=== PATIENT | female | born 1955 | race Caucasian/White ===

== ENCOUNTER → 2018-09-17 16:30 | Outpatient (CLI) | payer MEDICARE | END | disposition home or self-care (01) | LOC: D.LABREF 16:30 | PROVIDERS: ATTEND Orthopaedic Surgery | DX: M17.12 Unilateral primary osteoarthritis, left knee (principal); Z11.8 Encounter for screening for other infectious and parasitic diseases ==

== ENCOUNTER 2018-09-19 16:39 | Inpatient (IN) | payer MEDICARE ==
[~2018-09-19] VITALS: Ht 167.6 cm; Wt 90.9 kg
[2018-10-16] MEDS ORDERED: TYLENOL W/CODEI1 TAB PO (12:22)
[2018-10-16] MEDS ORDERED: LODINE400 MG (12:22)
[2018-10-16] MEDS ORDERED: LEVO-T75 MCG PO (12:22)
[2018-10-16] MEDS ORDERED: ZOLOFT100 MG PO (12:23)
[2018-10-16] MEDS ORDERED: LISINOPRIL20 MG PO (12:23)
[2018-10-16] MEDS ORDERED: ZANAFLEX4 MG PO (12:24)
[2018-10-16] MEDS ORDERED: MULTI-DAY VITAM1 TAB PO (12:24)
[2018-10-16] MEDS ORDERED: XELJANZ5 MG PO (12:24)
[2018-10-16] MEDS ORDERED: [UNRECOGNIZED DRUG - OTHER] (12:25)
[2018-10-17 11:11] LABS: HEMATOCRIT 38.3 % (36.0-48.0); HEMOGLOBIN 12.7 g/dL (12-16); LYMPHOCYTES 29.5 % (15-50); MCH 32.6 pg (26.0-34.0); MCHC 33.2 g/dL (31.0-37.0); MCV 98.5 fL (80.0-100.0); MEAN PLATELET VOLUME 9.6 fL (7.4-10.4); NEUTROPHILS 60.6 % (40-80); RBC 3.89 10x6/uL (4.00-5.40); RDW 13.4 % (11.5-14.5); WBC 6.8 10x3/uL (4.8-10.8)
[2018-10-17 11:22] LABS: INR 1.01 (0.85-1.17); PROTIME 12.8 SECONDS (11.6-15.0)
[2018-10-17 11:22] LABS: CALC OSMOLALITY 282 mosm/kg (275-300); CARBON DIOXIDE 30.1 mmol/L (21.0-32.0); CHLORIDE - SERUM 105 mmol/L (98-107); CREATININE - SERUM 0.7 mg/dL (0.6-1.3); GLUCOSE 104 mg/dL (74-106); POTASSIUM - SERUM 3.6 mmol/L (3.5-5.1); SODIUM 141 mmol/L (136-145); UREA NITROGEN 18 mg/dL (7-18); eGFR NON AFRICAN AMERICAN 90 mL/min (90-120)
[2018-10-17 11:23] LABS: APTT 28.8 SECONDS (22.8-39.4)
[2018-10-17 11:41] LABS: PLATELET COUNT 293 10x3/uL (130-400)
[2018-10-17 12:09] LABS: APPEARANCE HAZY (CLEAR); COLOR YELLOW (YELLOW)
[2018-10-17 12:10] LABS: BACTERIA MANY /hpf (NONE SEEN); BILIRUBIN NEGATIVE (NEGATIVE); EPITHELIAL CELLS OCC /hpf (0-5); GLUCOSE NEGATIVE (NEGATIVE); KETONE NEGATIVE (NEGATIVE); MUCUS <1+ /lpf (NONE SEEN); NITRITE POSITIVE (NEGATIVE); PROTEIN NEGATIVE (NEGATIVE); RED CELLS - URINE RARE /hpf (0-5); UROBILINOGEN NORMAL (NORMAL); WHITE CELLS - URINE 0-5 /hpf (0-5)
[2018-10-23] MEDS ORDERED: CIPRO500 MG PO (07:41)
[2018-10-23 07:42] VITALS: BP 134/87; BMI 33.1
[2018-10-23 09:02] LABS: APPEARANCE HAZY (CLEAR); BACTERIA FEW /hpf (NONE SEEN); BILIRUBIN NEGATIVE (NEGATIVE); COLOR YELLOW (YELLOW); EPITHELIAL CELLS OCC /hpf (0-5); GLUCOSE NEGATIVE (NEGATIVE); KETONE NEGATIVE (NEGATIVE); MUCUS <1+ /lpf (NONE SEEN); NITRITE NEGATIVE (NEGATIVE); PROTEIN NEGATIVE (NEGATIVE); RED CELLS - URINE 0-5 /hpf (0-5); UROBILINOGEN NORMAL (NORMAL); WHITE CELLS - URINE RARE /hpf (0-5)
--- NOTE | 2018-10-23 10:50 | NUR ---
FELIPE BLADE SETTINGS 6 AND 8 ELECTRODE PAD RIGHT THIGH LOT# [id number] DATE: 11/17/19
[2018-10-23 12:20] VITALS: BP 96/61
--- NOTE | 2018-10-23 12:20 | NUR ---
ARRIVED TO ROOM 2235 VIA STRETCHER WITH EYES CLOSED EASILY TO AROUSED WHEN NAME IS CALLED. RESP EVEN AND UNLABORED WITH NO DISTRESS NOTEDE. HAS O2 IN USE VIA N/C @ 2L/M. DRESSING CLEAN DRY AND INTACT TO LEFTT KNEE WITH ICE PACK IN USE. VS STARTED PER PROTOCOL. FAMILY AND C/L IN REACH AT BEDSIDE.
--- NOTE | 2018-10-23 12:43 | OP ---
PATIENT NAME: ASHLEY HEARD MEDICAL RECORD: [id number] :59 LOCATION: D.2235 ADMISSION DATE:10/23/18 SURGEON: BLAZE HENRY DO DATE OF OPERATION: 10/23/2018 PROCEDURE PERFORMED: Left total knee arthroplasty. PREOPERATIVE DIAGNOSIS: Left knee osteoarthritis. POSTOPERATIVE DIAGNOSIS: Left knee osteoarthritis. INDICATIONS: Ms. Heard is a 63-year-old female who has tried all manner of nonoperative treatment for her left knee osteoarthritis including injections and home physical therapy and she is tired of dealing with the pain and it is affecting her activities of living and wanted something done surgically. I informed of the risks including infection, bleeding, damage to nerves and vessels, need for further surgery. She was okay with those as well as blood clots and even , fracture and need for further surgery, and signed the consent. SURGEON: Blaze Henry DO AUTOMOBILES SALESPERSON: Torin Payan, advanced nurse practitioner, who assisted with retraction and closure. DESCRIPTION OF PROCEDURE: The patient was given a block by anesthesia in the preoperative area, taken to the operative suite, laid in supine position, given general anesthetic and LMA was placed. She was given 2 grams of Ancef and 80 mg gentamicin preoperatively. The left lower extremity was then prepped and draped in sterile fashion. A timeout was performed and everyone was in agreement as to correct side, site, patient, and procedure. Incision then began using 10-blade scalpel down to the capsule. She was given a gram of TXA. At that time, the capsule was cleared off and then a fresh 10-blade was used to medial parapatellar approach. The patella was then milled down for the patellar prosthesis and the knee was flexed up. The intramedullary canal was entered through the distal femur with the drill and the distal cutting guide on the femur was used to cut the femur. Once this femur was cut, the tibia was exposed and the tibia was cut. The knee was then brought into extension and the menisci were removed. Any bleeding was coagulated with Aquamantys at that time. I then had to recut his tibia in order to fit the extension block, it was recut, the extension block did not fit and the knee was flexed up. The femur was sized to be 65. The 4-in-1 cutting block was then put into place and drilled and the femur was cut. The bone was removed and then a tibial tray was used and floated in. Once the tibial tray was floated in, the rotation was marked and the patella was drilled as well as the femur lug holes. The tibia was then exposed and sized to be a 71. The 71 was drilled and punched and the extra holes were put in the tibia for the cement fixation. The cement was then mixed and placed in the tibia and on the implant, impacted into place. Excess cement was removed. The femur was then impacted on and 10 poly was put in between and brought to extension. Excess cement was removed and then the patella was cemented. The squeezer was used to hold the patella in place while the cement hardened. Excess cement was removed from the tibia and the patella at that time. The knee was thoroughly irrigated while cement dried and sized the poly, the 12 fit the best and extension and flexion and a 12 poly anterior stabilized E-bearing was put in and locked into place with locking mechanism. Surgicel OPERATIVE REPORT [id number] LINWOOD,ASHLEY NOHEMI powder and then vancomycin and tobramycin powder was placed in the knee. A lateral release was done on the lateral retinaculum so the patella would track correctly. This was somewhat tilted lateral on the x-ray after the implants were in. The capsule was then closed with #2 Ethibond in a cvntsw-bd-[id number] fashion and skin was closed with 2-0 Vicryl in inverted interrupted fashion. ZipLine was placed on it. Adaptic, 4 x 4s, ABD, Webril, and 6-inch Trever wrap were then placed on the knee and MARYCARMEN hose stocking placed on the knee. She was awakened and taken to recovery in stable condition. Blood loss was approximately 200 mL. A second gram of TXA was then given. COMPLICATIONS: None. TRANSINT:[id number] Voice Confirmation ID: [id number] DOCUMENT ID: [id number] BLAZE HENRY DO at 1243 CC: [id number] DICTATION DATE: 10/23/18 1109 DAIRY ASSOCIATE: 10/23/18 1232 ADM IN [facility] [address] [place] [address]
[2018-10-23 16:44] VITALS: BP 101/61
--- NOTE | 2018-10-23 16:54 | NUR ---
I have reviewed this patient and I concur with the Shift Assessment completed by the Licensed Practical Nurse today this shift.
[2018-10-23 20:00] VITALS: BP 96/49
[2018-10-24] VITALS (7 sets, daily range): BP systolic 104–142; BP diastolic 49–80; Ht 167.6 cm; Wt 90.9 kg
--- NOTE | 2018-10-24 05:21 | NUR ---
PT RESTING IN BED. ALERT AND ORIENTED. NO SIGNS OF DISTRESS. BREATHING EVEN AND UNLABORED. IV SITE RT AC DRESSING CLEAN DRY AND INTACT. NO SIGNS OF INFECTION. BOWEL SOUNDS ACTIVE. LT KNEE DRESSING CLEAN DRY AND INTACT. WILL CONTINUE PLAN OF CARE. CALL LIGHT IN REACH. BED LOWERED AND LOCKED. BED RAILS UP X2.
[2018-10-24 05:41] LABS: HEMATOCRIT 32.9 % (36.0-48.0); MCH 32.7 pg (26.0-34.0); MCHC 33.4 g/dL (31.0-37.0); MCV 97.9 fL (80.0-100.0); MEAN PLATELET VOLUME 9.9 fL (7.4-10.4); RBC 3.36 10x6/uL (4.00-5.40); WBC 9.7 10x3/uL (4.8-10.8)
--- NOTE | 2018-10-24 06:20 | NUR ---
PT IS WITHOUT DISTRESS.CALL LIGHT IN REACH
--- NOTE | 2018-10-24 07:40 | NUR ---
PT RESTING IN BED WITH EYES OPEN. STEFFANY BEARD AT THE BEDSIDE PLACING PT BACK ON THE CPM. ALERT AND ORIENTED. IV LOCATED TO RIGHT AC RUNNING 1/2NS @ ML. CURRENTLY RCVING 3L VIA NC. REQUESTING A SPRITE BUT DENIES ANY FURTHER NEEDS. BED LOW, CALL LIGHT IN REACH, RAILS UP X2. WILL CONTINUE TO MONITOR.
--- NOTE | 2018-10-25 02:20 | NUR ---
PT RESTING IN BED. EYES CLOSED. NO SIGNS OF DISTRESS. BREATHINGE EVEN AND UNLABORED. IVSITE RT FA DRESSING CLEAN DRY AND INTACT. NO SIGNS OF INFECTION. BOWEL SOUNDS ACTIVE. 3LO2 NASAL CANNULA. LT KLNEE DRESSING CLEAN DRY AND INTACT. WILL CONTINUE PLAN OF CARE. CALL LIGHT IN REACH. BED LOWERED AND LOCKED
--- NOTE | 2018-10-25 03:28 | NUR ---
I have reviewed this patient and I concur with the Shift Assessment completed by the Licensed Practical Nurse today this shift.
[2018-10-25 04:00] VITALS: BP 153/84
[2018-10-25 06:48] LABS: BASOPHILS 0.2 % (0-2); EOSINOPHILS 1.3 % (0-7); HEMATOCRIT 34.2 % (36.0-48.0); HEMOGLOBIN 11.2 g/dL (12-16); IMMATURE GRANULOCYTES 0.3 % (0-5); LYMPHOCYTES 9.9 % (15-50); MCH 31.8 pg (26.0-34.0); MCHC 32.7 g/dL (31.0-37.0); MCV 97.2 fL (80.0-100.0); MONOCYTES 10.9 % (2-11); NEUTROPHILS 77.4 % (40-80); PLATELET COUNT 267 10x3/uL (130-400); RBC 3.52 10x6/uL (4.00-5.40); RDW 13.9 % (11.5-14.5); WBC 9.1 10x3/uL (4.8-10.8)
[2018-10-25 06:53] LABS: CALC OSMOLALITY 280 mosm/kg (275-300); CALCIUM 8.4 mg/dL (8.5-10.1); CARBON DIOXIDE 25.1 mmol/L (21.0-32.0); CHLORIDE - SERUM 106 mmol/L (98-107); CREATININE - SERUM 0.8 mg/dL (0.6-1.3); GLUCOSE 129 mg/dL (74-106); POTASSIUM - SERUM 3.5 mmol/L (3.5-5.1); SODIUM 140 mmol/L (136-145); UREA NITROGEN 12 mg/dL (7-18); eGFR NON AFRICAN AMERICAN 77 mL/min (90-120)
[2018-10-25 09:15] VITALS: BP 137/84
[2018-10-25 13:10] VITALS: BP 101/70
--- NOTE | 2018-10-25 14:22 | MORECARE ---
CASE MANAGEMENT DISCHARGE SUMMARY PATIENT: ASHLEY PALUMBO UNIT: [id number] ADM DATE: 10/23/18 AGE: 63 : 59 SEX: F ROOM/BED: D.2235 AUTHOR: PENELOPE VASQUEZ PHYSICIAN: REFERRING PHYSICIAN: SHALOM HENYR DO DATE OF SERVICE: 10/25/18 Discharge Plan Patient Name: ASHLEY PALUMBO Facility: [facility]:[place] : 1955 Planned Disposition: Anticipated Discharge Date: Discharge Date: Expected LOS: Initial Reviewer: [email or web address] Initial Review Date: 10/23/2018 Generated: 10/25/18 3:22 pm Comments DCP- Discharge Planning Updated by [id number]: Maryandrew Jimenes on 10/25/18 1:[address] Patient Name: ASHLEY PALUMBO Admission Status: Elective Accout number: [id number] Admission Date: 10-23-2018 : 1955 Admission Diagnosis:UNILATERAL PRIMARY OSTEOARTHRITIS, LEFT KNEE Attending: SHALOM HENRY Current LOS: 2 Anticipated DC Date: Planned Disposition: Primary Insurance: MEDICARE A & B Discharge Planning Comments: CM MET WITH PATIENT AND HER DAUGHTER ABOUT DC PLANNING. STATES FEELS SHE NEEDS SOME INPATIENT REHAB WHEN DISCHARGED. I WILL SEND A REFERRAL TO REHAB. CM TO FOLLOW AND ASSIST. Director Workforce Management: Mary Jimenes DCPIA - Discharge Planning Initial Assessment Updated by [email or web address]: Mary Jimenes on 10/25/18 2:14 pm * Is the patient Alert and Oriented? Yes * PCP ANDREW * Pharmacy [facility] * Preadmission Environment Home Alone * ADLs Independent * List name and contact numbers for known caregivers / representatives who currently or will assist patient after discharge: DIONNA SCHULTE, DAUGHTER, * Additional services required to return to the preadmission environment? Yes * Can the patient safely return to the preadmission environment? No * Has this patient been hospitalized within the prior 30 days at any hospital? No Patient Name: ASHLEY PALUMBO Page [id number] at 1422 All edits/amendments must be made on the electronic document DICTATION DATE: 10/25/181421 CRIMINAL JUSTICE PROGRAM DIRECTOR: VENTURA 10/25/181421 RPT#: [id number] DC DATE: STATUS: ADM IN [facility] [address] [place] [address] END OF REPORT
--- NOTE | 2018-10-25 17:40 | NUR ---
I have reviewed this patient and I concur with the Shift Assessment completed by the Licensed Practical Nurse today this shift.
[2018-10-25 18:10] VITALS: BP 112/69
[2018-10-25 19:55] VITALS: BP 103/59
[2018-10-26] VITALS: BP 116/67
--- NOTE | 2018-10-26 01:22 | NUR ---
PATIENT RESTING IN BED WITH IV TO RIGHT FR. ALERT AND ORENTED ABLE TO VOICE NEEDS AND WANTS TO STAFF. DRESSING TO LEFT KNEE CDI MARYCARMEN HOUSE IN PLACE. WATER AND CALL LIGHT IN REACH , BED LOW.CPM PER ORDERS. BSC IN PLACE AT BEDSIDE.
[2018-10-26 04:00] VITALS: BP 137/77
--- NOTE | 2018-10-26 07:15 | NUR ---
REC'D IN BED AWAKE and alert. Resp even and unlabored with no distress noted. Can express needs and wants. With none noted or voiced at this time. Assessment completed. C/l in reach at bedside.
[2018-10-26 07:18] LABS: ANION GAP 17.3 mmol/L (8-16); CALCIUM 8.6 mg/dL (8.5-10.1); CARBON DIOXIDE 19.7 mmol/L (21.0-32.0); CREATININE - SERUM 0.9 mg/dL (0.6-1.3)
[2018-10-26 07:49] LABS: BASOPHILS 0.2 % (0-2); EOSINOPHILS 1.6 % (0-7); HEMATOCRIT 36.1 % (36.0-48.0); HEMOGLOBIN 11.6 g/dL (12-16); IMMATURE GRANULOCYTES 0.3 % (0-5); LYMPHOCYTES 11.1 % (15-50); MCH 31.5 pg (26.0-34.0); MCHC 32.1 g/dL (31.0-37.0); MCV 98.1 fL (80.0-100.0); MEAN PLATELET VOLUME 10.1 fL (7.4-10.4); MONOCYTES 8.3 % (2-11); NEUTROPHILS 78.5 % (40-80); PLATELET COUNT 242 10x3/uL (130-400); RBC 3.68 10x6/uL (4.00-5.40); RDW 13.5 % (11.5-14.5); WBC 10.3 10x3/uL (4.8-10.8)
[2018-10-26 08:30] VITALS: BP 145/81
--- NOTE | 2018-10-26 09:10 | NUR ---
WAS MEDICATED WITH DILADID PER ORDER FOR C/O LEFT KNEE PAIN. C/L IN REACH AT BEDSIDE.
[2018-10-26] MEDS ORDERED: DILAUDID4 MG PO (11:46)
[2018-10-26] MEDS ORDERED: ELIQUIS2.5 MG PO (11:46)
[2018-10-26] MEDS ORDERED: VISTARIL50 MG PO (11:46)
--- NOTE | 2018-10-26 12:26 | NUR ---
DRESSING CHANGED AT THIS TIME TO LEFT KNEE WITH MEPILEX BORDER AG APPLIED AT THIS TIME PER MD ORDERS. DAUGHTER WAS AT BEDSIDE. C/L IN REACH AT BEDSIDE.
[2018-10-26 12:47] VITALS: BP 124/78
--- NOTE | 2018-10-26 13:59 | NUR ---
DC JOSE AT THIS TIME VOICES UNDERSTANDING OF DC ORDERS. DAUGHTER AT BEDSIDE AND ALSO VOICES UNDERSTANDING. STABLE CONDITION UPON DEPARTURE. C/L IN REACH AT BEDSIDE.
--- NOTE | 2018-10-26 15:43 | MORECARE ---
CASE MANAGEMENT DISCHARGE SUMMARY PATIENT: ASHLEY PALUMBO UNIT: [id number] ADM DATE: 10/23/18 AGE: 63 : 59 SEX: F ROOM/BED: D.2235 AUTHOR: PENELOPE VASQUEZ PHYSICIAN: REFERRING PHYSICIAN: SHALOM HENRY DO DATE OF SERVICE: 10/26/18 Discharge Plan Patient Name: ASHLEY PALUMBO Facility: [facility]:[place] : 1955 Planned Disposition: Anticipated Discharge Date: Discharge Date: 10/26/2018 Expected LOS: Initial Reviewer: [email or web address] Initial Review Date: 10/23/2018 Generated: 10/26/18 4:43 pm Comments DCP- Discharge Planning Updated by [email or web address]: Mary Jimenes on 10/25/18 1:[address] Patient Name: ASHLEY PALUMBO Admission Status: Elective Accout number: [id number] Admission Date: 10-23-2018 : 1955 Admission Diagnosis:UNILATERAL PRIMARY OSTEOARTHRITIS, LEFT KNEE Attending: SHALOM HENYR Current LOS: 2 Anticipated DC Date: Planned Disposition: Primary Insurance: MEDICARE A & B Discharge Planning Comments: CM MET WITH PATIENT AND HER DAUGHTER ABOUT DC PLANNING. STATES FEELS SHE NEEDS SOME INPATIENT REHAB WHEN DISCHARGED. I WILL SEND A REFERRAL TO REHAB. CM TO FOLLOW AND ASSIST. Automotive Fuel Systems Converter: Mary Jimenes DCPIA - Discharge Planning Initial Assessment Updated by [id number]: Mary Jimenes on 10/25/18 2:14 pm * Is the patient Alert and Oriented? Yes * PCP ANDREW * Pharmacy [facility] * Preadmission Environment Home Alone * ADLs Independent * List name and contact numbers for known caregivers / representatives who currently or will assist patient after discharge: DIONNA SCHULTE, DAUGHTER, * Additional services required to return to the preadmission environment? Yes * Can the patient safely return to the preadmission environment? No * Has this patient been hospitalized within the prior 30 days at any hospital? No Coverage Notice Reviewer: [id number] - Mary Jimenes Notice Issued Date-Time: 10/26/2018 11:59 Notice Type: IM Discharge Notice Notice Delivered To: Patient Relationship to Patient: Self Digital Technician Name: Delivery Method: HAND - Hand Delivered Kenna Days: Prior Verbal Notification: Recipient Understood Notice: Yes Recipient Signature: Yes Med Rec Note Co-signed by Attending: Coverage Notice Comment: Last DP export: 10/25/18 1:22 p Patient Name: ASHLEY PALUMBO Page [phone] at 1543 All edits/amendments must be made on the electronic document DICTATION DATE: 10/26/18 1543 HUMANITIES PROFESSOR: VENTURA 10/26/18 1543 RPT#: [id number] DC DATE:10/26/18 STATUS: DIS IN [facility] [address] [place] [address] END OF REPORT
== END 2018-10-26 14:01 | disposition home or self-care (01) | DRG 470 ==
LOC: D.SDCHOLD 10-17 10:00 → D.MS 10-23 06:35 → D.SDCHOLD 10-23 08:15 → D.MS 10-23 12:10
PROVIDERS: Internal Medicine Nephrology; ADMIT Orthopaedic Surgery; ATTEND Orthopaedic Surgery
PROC: 0SRD0J9 Replacement of Left Knee Joint with Synthetic Substitute, Cemented, Open Approach (ICD-10-PCS; principal; 2018-10-23 08:15)
DX: M17.12 Unilateral primary osteoarthritis, left knee (principal); D62 Acute posthemorrhagic anemia; I10 Essential (primary) hypertension; E03.9 Hypothyroidism, unspecified; K21.9 Gastro-esophageal reflux disease without esophagitis

== ENCOUNTER → 2018-11-08 14:01 | Outpatient (CLI) | payer MEDICARE ==
[2018-10-24 15:11] VITALS: BMI 32.3
[~2018-11-08 14:01] MED LIST: CIPRO500 MG PO; DILAUDID4 MG PO; ELIQUIS2.5 MG PO; LEVO-T75 MCG PO; LISINOPRIL20 MG PO; LODINE400 MG; MULTI-DAY VITAM1 TAB PO; TYLENOL W/CODEI1 TAB PO; VISTARIL50 MG PO; XELJANZ5 MG PO; ZANAFLEX4 MG PO; ZOLOFT100 MG PO; [UNRECOGNIZED DRUG - OTHER]
[2018-11-08 14:36] LABS: APPEARANCE CLOUDY (CLEAR); BACTERIA MANY /hpf (NONE SEEN); BILIRUBIN NEGATIVE (NEGATIVE); COLOR DK YELLOW (YELLOW); EPITHELIAL CELLS 0-5 /hpf (0-5); GLUCOSE NEGATIVE (NEGATIVE); KETONE NEGATIVE (NEGATIVE); NITRITE POSITIVE (NEGATIVE); PROTEIN NEGATIVE (NEGATIVE); RED CELLS - URINE 0-5 /hpf (0-5); UROBILINOGEN NORMAL (NORMAL); WHITE CELLS - URINE 0-5 /hpf (0-5)
== END | disposition home or self-care (01) ==
LOC: D.LAB 14:01
PROVIDERS: ATTEND Orthopaedic Surgery
DX: N39.0 Urinary tract infection, site not specified (principal)

== ENCOUNTER → 2019-05-06 15:34 | Outpatient (CLI) | payer MEDICARE ==
[2018-10-24 15:11] VITALS: BMI 32.3
[2019-05-06 20:34] LABS: BASOPHILS 0.9 % (0-2); EOSINOPHILS 2.1 % (0-7); HEMATOCRIT 38.2 % (36.0-48.0); HEMOGLOBIN 11.9 g/dL (12-16); LYMPHOCYTES 39.9 % (15-50); MCH 29.8 pg (26.0-34.0); MCHC 31.2 g/dL (31.0-37.0); MCV 95.7 fL (80.0-100.0); MONOCYTES 7.8 % (2-11); NEUTROPHILS 49.3 % (40-80); RBC 3.99 10x6/uL (4.00-5.40); RDW 14.7 % (11.5-14.5); WBC 4.3 10x3/uL (4.8-10.8)
[2019-05-06 20:49] LABS: PLATELET COUNT 461 10x3/uL (130-400)
[2019-05-06 21:39] LABS: ERYTHROCYTE SEDIMENTATION RATE 14 mm/hr (0-30)
== END | disposition home or self-care (01) ==
LOC: D.LABREF 15:34
PROVIDERS: ATTEND Orthopaedic Surgery
DX: M25.562 Pain in left knee (principal)

== ENCOUNTER → 2019-09-19 18:18 | Outpatient (CLI) | payer MEDICARE ==
[2018-10-24 15:11] VITALS: BMI 32.3
== END | disposition home or self-care (01) ==
LOC: D.LABREF 18:18
PROVIDERS: ATTEND Orthopaedic Surgery
DX: M17.12 Unilateral primary osteoarthritis, left knee (principal)

== ENCOUNTER 2019-09-26 08:00 | Outpatient (CLI) | payer MEDICARE ==
[2019-09-26] MEDS ORDERED: XELJANZ5 MG PO (10:51)
[2019-09-26] MEDS ORDERED: TYLENOL W/CODEI1 TAB PO (10:52)
[2019-09-26] MEDS ORDERED: VITAMIN D5000 UNI1 PO (10:52)
[2019-09-26 11:52] LABS: HEMATOCRIT 36.5 % (36.0-48.0); HEMOGLOBIN 11.4 g/dL (12-16); LYMPHOCYTES 21.1 % (15-50); MCH 29.7 pg (26.0-34.0); MCHC 31.2 g/dL (31.0-37.0); MCV 95.1 fL (80.0-100.0); MEAN PLATELET VOLUME 9.6 fL (7.4-10.4); NEUTROPHILS 68.1 % (40-80); RBC 3.84 10x6/uL (4.00-5.40); RDW 13.9 % (11.5-14.5); WBC 4.9 10x3/uL (4.8-10.8)
--- NOTE | 2019-09-26 11:55 | NUR ---
T- 97.9, BP RA- 135/74, POX- 96%, HR- 66, RR- 16
[2019-09-26 12:04] LABS: CALC OSMOLALITY 272 mosm/kg (275-300); CALCIUM 8.6 mg/dL (8.5-10.1); CARBON DIOXIDE 28.7 mmol/L (21.0-32.0); CHLORIDE - SERUM 103 mmol/L (98-107); CREATININE - SERUM 0.8 mg/dL (0.6-1.3); GLUCOSE 92 mg/dL (74-106); PLATELET COUNT 322 10x3/uL (130-400); POTASSIUM - SERUM 3.7 mmol/L (3.5-5.1); SODIUM 137 mmol/L (136-145); UREA NITROGEN 11 mg/dL (7-18); eGFR NON AFRICAN AMERICAN 77 mL/min (90-120)
[2019-09-26 12:12] LABS: APTT 29.8 SECONDS (22.8-39.4); INR 0.97 (0.85-1.17); PROTIME 12.9 SECONDS (11.6-15.0)
[2019-09-26 13:03] LABS: BILIRUBIN NEGATIVE (NEGATIVE); KETONE NEGATIVE (NEGATIVE); NITRITE NEGATIVE (NEGATIVE)
[2019-09-26 13:04] LABS: BACTERIA FEW /hpf (NEGATIVE); EPITHELIAL CELLS 0-5 /hpf (0-5); WHITE CELLS - URINE OCC /hpf (NEGATIVE)
[2019-10-25 12:16] VITALS: Wt 92.5 kg
== END 2019-09-26 08:01 | disposition home or self-care (01) ==
LOC: D.OPS 08:00 → D.SDCHOLD 09-27 11:30 → EDSTATUS 09-27 12:00 → D.SDCHOLD 09-27 12:00
PROVIDERS: ATTEND Orthopaedic Surgery
DX: Z96.652 Presence of left artificial knee joint (principal)

== ENCOUNTER 2019-10-10 12:30 | Inpatient (IN) | payer MEDICARE ==
[~2019-10-10] VITALS: Ht 165.1 cm; Wt 94.8 kg
[~2019-10-10 12:30] MED LIST changes: +VITAMIN D5000 UNI1 PO
[2019-10-17 10:26] LABS: EOSINOPHILS 4.1 % (0-7); HEMATOCRIT 36.3 % (36.0-48.0); HEMOGLOBIN 11.1 g/dL (12-16); IMMATURE GRANULOCYTES 0.2 % (0-5); LYMPHOCYTES 19.2 % (15-50); MCH 29.3 pg (26.0-34.0); MCHC 30.6 g/dL (31.0-37.0); MCV 95.8 fL (80.0-100.0); MEAN PLATELET VOLUME 9.7 fL (7.4-10.4); MONOCYTES 7.9 % (2-11); NEUTROPHILS 67.6 % (40-80); RBC 3.79 10x6/uL (4.00-5.40); RDW 14.2 % (11.5-14.5); WBC 5.8 10x3/uL (4.8-10.8)
[2019-10-17 10:31] LABS: PLATELET COUNT 413 10x3/uL (130-400)
[2019-10-17 10:36] LABS: APTT 30.9 SECONDS (22.8-39.4); INR 0.95 (0.85-1.17); PROTIME 12.7 SECONDS (11.6-15.0)
[2019-10-17 10:38] LABS: CALC OSMOLALITY 278 mosm/kg (275-300); CALCIUM 8.5 mg/dL (8.5-10.1); CARBON DIOXIDE 28.9 mmol/L (21.0-32.0); CHLORIDE - SERUM 105 mmol/L (98-107); CREATININE - SERUM 0.8 mg/dL (0.6-1.3); GLUCOSE 93 mg/dL (74-106); POTASSIUM - SERUM 3.8 mmol/L (3.5-5.1); SODIUM 140 mmol/L (136-145); UREA NITROGEN 13 mg/dL (7-18); eGFR NON AFRICAN AMERICAN 77 mL/min (90-120)
[2019-10-17 10:40] LABS: BILIRUBIN NEGATIVE (NEGATIVE); GLUCOSE NEGATIVE (NEGATIVE); KETONE NEGATIVE (NEGATIVE); NITRITE NEGATIVE (NEGATIVE); UROBILINOGEN NORMAL (NORMAL)
[2019-10-17 10:41] LABS: BACTERIA FEW /hpf (NEGATIVE); EPITHELIAL CELLS 0-5 /hpf (0-5); WHITE CELLS - URINE 0-5 /hpf (NEGATIVE)
[2019-10-21] VITALS (11 sets, daily range): BP systolic 115–136; BP diastolic 60–82; BMI 35.0
[2019-10-21] MEDS ORDERED: MERIBIN5 MG PO (07:39)
--- NOTE | 2019-10-21 12:00 | NUR ---
RECEIVED PT TO FLOOR FROM RECOVERY, A&O, FAMILY AT BEDSIDE, CALL LIGHT IN REACH, ORIENTED TO ROOM, PAIN MEDICATION GIVEN, DIET ORDERED, BED LOWEST POSITION, SCDS ON, VITAL MACHINE ON FOR MONITORING
[2019-10-22] VITALS: BP 129/71
[2019-10-22 04:00] VITALS: BP 143/78
[2019-10-22 04:52] LABS: HEMATOCRIT 32.5 % (36.0-48.0); HEMOGLOBIN 9.9 g/dL (12-16); MCHC 30.5 g/dL (31.0-37.0); MCV 95.3 fL (80.0-100.0); MEAN PLATELET VOLUME 10.6 fL (7.4-10.4); RBC 3.41 10x6/uL (4.00-5.40); RDW 14.5 % (11.5-14.5); WBC 8.6 10x3/uL (4.8-10.8)
--- NOTE | 2019-10-22 07:16 | NUR ---
GAVE TORADOL IVP AND PERCOCET PO PER PT REQUEST FOR BREAKTHROUGH PAIN AT LEVEL 8/10. WILL MONITOR FOR EFFECTIVENESS.
--- NOTE | 2019-10-22 07:45 | NUR ---
ALERT AND ORIENTED. LUNGS CLEAR BILATERALLY. HEART SOUNDS S1 AND S2 HEARD IN ALL LYNN. BOWEL SOUNDS ACTIVE X 4 IV TO RIGHT AC PATENT WITHOUT REDNESS. DENIES NEEDS. BED LOW. CALL ZENDEJAS AND PERSONAL ITEMS IN REACH. WILL CONTINUE TO MONITOR.
[2019-10-22 09:17] VITALS: BP 110/65
--- NOTE | 2019-10-22 11:20 | NUR ---
REPORT CALLED TO CAROLINE ON M3.
--- NOTE | 2019-10-22 11:37 | NUR ---
PT RECIEVED FROM MED SURG, CARE ASSUMED. NO S/S OF DISTRESS AT THIS TIME. PT TRANSFERRED FROM WHEELCHAIR TO BED WITH STANDBY ASSIST. NO NEEDS AT THIS TIME.
[2019-10-22 15:16] VITALS: BP 116/65
[2019-10-22 20:00] VITALS: BP 117/51
--- NOTE | 2019-10-22 20:00 | NUR ---
ALERT SITTING UP IN BED, HAS INTERMODAL TRUCK DRIVER FOR PAIN CONTROL, DENIES NEEDS AT THIS TIME, SEE SHIFT ASSESSMENT, CALL LIGHT IN REACH
[2019-10-23 04:00] VITALS: BP 143/72
[2019-10-23 06:52] LABS: HEMATOCRIT 30.3 % (36.0-48.0); HEMOGLOBIN 9.3 g/dL (12-16); MCH 29.4 pg (26.0-34.0); MCHC 30.7 g/dL (31.0-37.0); MCV 95.9 fL (80.0-100.0); MEAN PLATELET VOLUME 9.9 fL (7.4-10.4); RBC 3.16 10x6/uL (4.00-5.40); RDW 14.5 % (11.5-14.5); WBC 7.1 10x3/uL (4.8-10.8)
[2019-10-23 08:00] VITALS: BP 128/70
--- NOTE | 2019-10-23 08:10 | NUR ---
PT LAYING IN BED, EYES CLOSED, EVEN RESPIRATIONS. PIV IN R FOREARM, PATENT, NO REDNESS OR SWELLING. SCD ON RLE. DELLA WRAP ON LLE, C/D/I. BED LOW, RAILS X2. CL IN REACH. WILL CONTINUE TO MONITOR.
--- NOTE | 2019-10-23 09:00 | NUR ---
D/C BEE PRODUCER PUMP AND S/L PIV. PT TOLERATED WELL. WILL CONTINUE TO MONITOR.
--- NOTE | 2019-10-23 09:45 | NUR ---
PT C/O PAIN 08/20, PROVIDED PAIN MED PER ORDER. PT ABLE TO AMBULATE WITH PT, TOLERATED WELL. PT DENIES FURTHER NEEDS. BED LOW, RAILS X2. WILL CONTINUE TO MONITOR.
[2019-10-23 09:53] VITALS: Ht 165.1 cm; Wt 94.8 kg
[2019-10-23 11:22] VITALS: BP 107/63
--- NOTE | 2019-10-23 14:46 | MORECARE ---
CASE MANAGEMENT DISCHARGE SUMMARY PATIENT: ASHLEY PALUMBO UNIT: [id number] ADM DATE: 10/21/19 AGE: 64 : 59 SEX: F ROOM/BED: D.1206 AUTHOR: PENELOPE VASQUEZ PHYSICIAN: REFERRING PHYSICIAN: MANJIT NAYAK MD DATE OF SERVICE: 10/23/19 Discharge Plan Patient Name: ASHLEY PALUMBO Facility: [facility]:[place] : 1955 Planned Disposition: Inpatient Rehab Anticipated Discharge Date: Discharge Date: Expected LOS: Initial Reviewer: [email or web address] Initial Review Date: 10/21/2019 Generated: 10/23/19 3:45 pm DCPIA - Discharge Planning Initial Assessment Updated by [email or web address]: Kristy Copeland on 10/23/19 2:42 pm * Is the patient Alert and Oriented? Yes * How many steps to enter\exit or inside your home? * PCP MORALES * Pharmacy [facility] [address] * Preadmission Environment Home Alone * ADLs Partial Dependent * Partial ADLs (Assistance needed) Transfers * Equipment Bedside Commode Cane Rolling Walker Shower Chair * Other Equipment TRANSFER SHOWER CHAIR * List name and contact numbers for known caregivers / representatives who currently or will assist patient after discharge: DIONNA SCHULTE ([facility]) [phone] * Verbal permission to speak to the caregivers and representatives has been obtained from the patient. Yes * Community resources currently utilized Advantage Program * Please name any agencies selected above. [facility] 15 HOURS PER WEEK * Additional services required to return to the preadmission environment? Yes * Can the patient safely return to the preadmission environment? No * Has this patient been hospitalized within the prior 30 days at any hospital? No Patient Name: ASHLEY PALUMBO Page [phone] at 1446 All edits/amendments must be made on the electronic document DICTATION DATE: 10/23/19 1446 INDUSTRIAL METHODS CONSULTANT: VENTURA 10/23/19 1446 RPT#: [id number] DC DATE: STATUS: ADM IN [facility] [address] [place] [address] END OF REPORT
--- NOTE | 2019-10-23 14:55 | MORECARE ---
CASE MANAGEMENT DISCHARGE SUMMARY PATIENT: ASHLEY PALUMBO UNIT: [id number] ADM DATE: 10/21/19 AGE: 64 : 59 SEX: F ROOM/BED: D.1206 AUTHOR: PENELOPE VASQUEZ PHYSICIAN: REFERRING PHYSICIAN: MANJIT NAYAK MD DATE OF SERVICE: 10/23/19 Discharge Plan Patient Name: ASHLEY PALUMBO Facility: [facility]:[place] : 1955 Planned Disposition: Inpatient Rehab Anticipated Discharge Date: Discharge Date: Expected LOS: Initial Reviewer: [email or web address] Initial Review Date: 10/21/2019 Generated: 10/23/19 3:54 pm Comments DCP- Discharge Planning Updated by [email or web address]: Kristy Copeland on 10/23/19 1:[address] patient's dme is from [facility], THE CPM WILL BE DELIVERED TO THE HOME DCP- Discharge Planning Updated by [email or web address]: Kristy Copeland on 10/23/19 1:[address] Patient Name: ASHLEY PALUMBO Admission Status: Urgent Accout number: [id number] Admission Date: 10-21-2019 : 1955 Admission Diagnosis: Attending: MANJIT NAYAK Current LOS: 2 Anticipated DC Date: Planned Disposition: Inpatient Rehab Primary Insurance: MEDICARE A & B Discharge Planning Comments: CM met with patient to complete initial dc planning assessment. CM educated patient on the CM role and verbal consent given by patient to complete assessment. Patient lives at home by herself where she states she is independent with her care, but she does have [facility] who comes and helps her 15 hrs a week. At discharge patient would like to go to inpatient rehab at [facility] and feels like that would be a good plan. CM discussed availability of home health, rehab services, and medical equipment. She has 15hr a week per [facility] [facility]. She has a walker, BSC, transfer shower chair, cane, she has cool therapy at home too. Her daughter Bassam will be her otr driver home. IMM served and explained along with the [facility] for inpatient rehab. Patient denied known discharge needs at this time. CM will continue to follow and will assist as needed with dc plans/needs. Scrap Stripper Hand: Kristy Copeland DCPIA - Discharge Planning Initial Assessment Updated by [email or web address]: Kristy Copeland on 10/23/19 2:42 pm * Is the patient Alert and Oriented? Yes * How many steps to enter\exit or inside your home? * PCP MORALES * Pharmacy [facility] [address] * Preadmission Environment Home Alone * ADLs Partial Dependent * Partial ADLs (Assistance needed) Transfers * Equipment Bedside Commode Cane Rolling Walker Shower Chair * Other Equipment TRANSFER SHOWER CHAIR * List name and contact numbers for known caregivers / representatives who currently or will assist patient after discharge: DIONNA SCHULTE ([facility]) [phone] * Verbal permission to speak to the caregivers and representatives has been obtained from the patient. Yes * Community resources currently utilized Advantage Program * Please name any agencies selected above. [facility] 15 HOURS PER WEEK * Additional services required to return to the preadmission environment? Yes * Can the patient safely return to the preadmission environment? No * Has this patient been hospitalized within the prior 30 days at any hospital? No Coverage Notice Reviewer: [email or web address] - Kristy Copeland Notice Issued Date-Time: 10/23/2019 13:40 Notice Type: IM Discharge Notice Notice Delivered To: Patient Relationship to Patient: Cutter Woodwind Reeds Name: Delivery Method: HAND - Hand Delivered Kenna Days: Prior Verbal Notification: Recipient Understood Notice: Yes Recipient Signature: Yes Med Rec Note Co-signed by Attending: Coverage Notice Comment: Reviewer: [email or web address] Kyrie Copeland Notice Issued Date-Time: 10/23/2019 13:40 Notice Type: Patient Choice Letter Notice Delivered To: Patient Relationship to Patient: Cutter Woodwind Reeds Name: Delivery Method: HAND - Hand Delivered Kenna Days: Prior Verbal Notification: Recipient Understood Notice: Yes Recipient Signature: Yes Med Rec Note Co-signed by Attending: Coverage Notice Comment: alisson with [facility] inpatient rehab Last DP export: 10/23/19 1:46 p Patient Name: ASHLEY PALUMBO Page 45900 at 7183 All edits/amendments must be made on the electronic document DICTATION DATE: 10/23/19 5524 CATTLE PRODUCERS: VENTURA 10/23/19 0309 RPT#: [id number] DC DATE: STATUS: ADM IN [facility] [address] [facility] [place] [address] END OF REPORT
[2019-10-23 16:00] VITALS: BP 120/71
--- NOTE | 2019-10-23 17:00 | NUR ---
PT C/O PAIN 10/20, PROVIDED PAIN MEDS. DENIES FURTHER NEEDS. BED LOW, CL IN REACH. WILL CONTINUE TO MONITOR.
--- NOTE | 2019-10-23 20:00 | NUR ---
ALERT RESTING IN BED REQUESTING PAIN MEDS. STATES ITS TIME FOR MY TYLENOL 3, GIVEN ORDERED, SEE SHIFT ASSESSEMENT, CALL LIGHT IN REACH
[2019-10-23 20:22] VITALS: BP 124/56
[2019-10-24 05:39] VITALS: BP 135/81
[2019-10-24 07:32] VITALS: BP 125/75
[2019-10-24] MEDS ORDERED: ELIQUIS2.5 MG PO (08:16)
[2019-10-24] MEDS ORDERED: TYLENOL W/CODEI1 TAB PO (08:17)
[2019-10-24] MEDS ORDERED: DILAUDID2 MG PO (08:17)
--- NOTE | 2019-10-24 08:55 | NUR ---
PT LAYING IN BED A&O X4. C/O 10/20 PAIN, PROVIDED MEDS PER ORDER. PIV IN R FOREARM, S/L, PATENT, NO REDNESS OR SWELLING. SCD IN PLACE ON RLE. DELLA WRAP ON LLE. PT ABLE TO AMBULATE WITH ONE PERSON ASSIST. EDUCATED PT THAT GOAL WAS TO D/C TO REHAB THIS AFTERNOON, VERBALIZED UNDERSTANDING. EDUCATED ON CL AND NEEDS, VERBALIZED UNDERSTANDING. BED LOW, RAILS X2. CL IN REACH, WILL CONTINUE TO MONITOR.
--- NOTE | 2019-10-24 13:09 | MORECARE ---
CASE MANAGEMENT DISCHARGE SUMMARY PATIENT: ASHLEY PALUMBO UNIT: [id number] ADM DATE: 10/21/19 AGE: 64 : 59 SEX: F ROOM/BED: D.1206 AUTHOR: PEDRO,DOC PHYSICIAN: REFERRING PHYSICIAN: MANJIT NAYAK MD DATE OF SERVICE: 10/24/19 Discharge Plan Patient Name: ASHLEY PALUMBO Facility: [facility]:[place] : 1955 Planned Disposition: Inpatient Rehab Anticipated Discharge Date: Discharge Date: Expected LOS: Initial Reviewer: [email or web address] Initial Review Date: 10/21/2019 Generated: 10/24/19 2:09 pm Comments DCP- Discharge Planning Updated by [email or web address]: Kristy Copeland on 10/24/19 12:[address] Patient will be discharging to inpatient rehab at [facility] today DCP- Discharge Planning Updated by [email or web address]: Kristy Copeland on 10/23/19 1:[address] patient's dme is from [facility], THE CPM WILL BE DELIVERED TO THE HOME DCP- Discharge Planning Updated by [email or web address]: Kristy Copeland on 10/23/19 1:[address] Patient Name: ASHLEY PALUMBO Admission Status: Urgent Accout number: [id number] Admission Date: 10-21-2019 : 1955 Admission Diagnosis: Attending: MANJIT NAYAK Current LOS: 2 Anticipated DC Date: Planned Disposition: Inpatient Rehab Primary Insurance: MEDICARE A & B Discharge Planning Comments: CM met with patient to complete initial dc planning assessment. CM educated patient on the CM role and verbal consent given by patient to complete assessment. Patient lives at home by herself where she states she is independent with her care, but she does have [facility] who comes and helps her 15 hrs a week. At discharge patient would like to go to inpatient rehab at [facility] and feels like that would be a good plan. CM discussed availability of home health, rehab services, and medical equipment. She has 15hr a week per [facility] [employer]. She has a walker, BSC, transfer shower chair, cane, she has cool therapy at home too. Her daughter Bassam will be her truck driver home. IMM served and explained along with the [facility] for inpatient rehab. Patient denied known discharge needs at this time. CM will continue to follow and will assist as needed with dc plans/needs. Avionics Engineer: Kristy Copeland DCPIA - Discharge Planning Initial Assessment Updated by [email or web address]: Kristy Copeland on 10/23/19 2:42 pm * Is the patient Alert and Oriented? Yes * How many steps to enter\exit or inside your home? * PCP MORALES * Pharmacy [facility] [address] * Preadmission Environment Home Alone * ADLs Partial Dependent * Partial ADLs (Assistance needed) Transfers * Equipment Bedside Commode Cane Rolling Walker Shower Chair * Other Equipment TRANSFER SHOWER CHAIR * List name and contact numbers for known caregivers / representatives who currently or will assist patient after discharge: DIONNA ERIS ([facility]) [phone] * Verbal permission to speak to the caregivers and representatives has been obtained from the patient. Yes * Community resources currently utilized Advantage Program * Please name any agencies selected above. [facility] 15 HOURS PER WEEK * Additional services required to return to the preadmission environment? Yes * Can the patient safely return to the preadmission environment? No * Has this patient been hospitalized within the prior 30 days at any hospital? No Coverage Notice Reviewer: [id number] Kyrie Copeland Notice Issued Date-Time: 10/23/2019 13:40 Notice Type: IM Discharge Notice Notice Delivered To: Patient Relationship to Patient: Infertility Medical Assistant Name: Delivery Method: HAND - Hand Delivered Kenna Days: Prior Verbal Notification: Recipient Understood Notice: Yes Recipient Signature: Yes Med Rec Note Co-signed by Attending: Coverage Notice Comment: Reviewer: [id number] - Kristy Copeland Notice Issued Date-Time: 10/23/2019 13:40 Notice Type: Patient Choice Letter Notice Delivered To: Patient Relationship to Patient: Infertility Medical Assistant Name: Delivery Method: HAND - Hand Delivered Kenna Days: Prior Verbal Notification: Recipient Understood Notice: Yes Recipient Signature: Yes Med Rec Note Co-signed by Attending: Coverage Notice Comment: alisson with [facility] inpatient rehab Last DP export: 10/23/19 1:55 p Patient Name: ASHLEY PALUMBO Page [phone] at 1309 All edits/amendments must be made on the electronic document DICTATION DATE: 10/24/19 1309 EXPERIMENTAL WORKER: VENTURA 10/24/19 1309 RPT#: [id number] DC DATE: STATUS: ADM IN [facility] [address] [place] [address] END OF REPORT
--- NOTE | 2019-10-24 14:15 | NUR ---
Rehab Note- Acute Inpatient REhab prescreen order received. The patient is a good inpatient acute rehab candidate and is in agreeance with [facility] Acute Inpatient REhab. Will accept when medically stable and ready for transfer from the acute hospital. Thank you for this referral! Dee Dee Le RN Clinical Liaison, [facility] Rehab
--- NOTE | 2019-10-24 15:47 | NUR ---
EDUCATED ON D/C INSTRUCTIONS. CHANGED DRESSING ON LEFT KNEE, APPLIED AQUACELL AG, AND EDUCATED PT ON DRSG CHANGES, VERBALIZED UNDERSTANDING. D/C PIV, PT TOLERATED WELL. ESCORTED TO REHAB VIA WHEELCHAIR.
--- NOTE | 2019-10-25 10:39 | MORECARE ---
CASE MANAGEMENT DISCHARGE SUMMARY PATIENT: ASHLEY PALUMBO UNIT: [id number] ADM DATE: 10/21/19 AGE: 64 : 59 SEX: F ROOM/BED: D.1206 AUTHOR: PEDRO,DOC PHYSICIAN: REFERRING PHYSICIAN: MANJIT NAYAK MD DATE OF SERVICE: 10/25/19 Discharge Plan Patient Name: ASHLEY PALUMBO Facility: [facility]:[place] : 1955 Planned Disposition: Inpatient Rehab Anticipated Discharge Date: Discharge Date: 10/24/2019 Expected LOS: Initial Reviewer: [email or web address] Initial Review Date: 10/21/2019 Generated: 10/25/19 11:38 am Comments DCP- Discharge Planning Updated by [email or web address]: Kristy Copeland on 10/24/19 12:[address] Patient will be discharging to inpatient rehab at [facility] today DCP- Discharge Planning Updated by [id number]: Kristy Copeland on 10/23/19 1:[address] patient's dme is from [facility], THE CPM WILL BE DELIVERED TO THE HOME DCP- Discharge Planning Updated by [email or web address]: Kristy Copeland on 10/23/19 1:[address] Patient Name: ASHLEY PALUMBO Admission Status: Urgent Accout number: [id number] Admission Date: 10-21-2019 : 1955 Admission Diagnosis: Attending: MANJIT NAYAK Current LOS: 2 Anticipated DC Date: Planned Disposition: Inpatient Rehab Primary Insurance: MEDICARE A & B Discharge Planning Comments: CM met with patient to complete initial dc planning assessment. CM educated patient on the CM role and verbal consent given by patient to complete assessment. Patient lives at home by herself where she states she is independent with her care, but she does have [facility] who comes and helps her 15 hrs a week. At discharge patient would like to go to inpatient rehab at [facility] and feels like that would be a good plan. CM discussed availability of home health, rehab services, and medical equipment. She has 15hr a week per [facility] [employer] [facility]. She has a walker, BSC, transfer shower chair, cane, she has cool therapy at home too. Her daughter Bassam will be her boom truck driver home. IMM served and explained along with the [facility] for inpatient rehab. Patient denied known discharge needs at this time. CM will continue to follow and will assist as needed with dc plans/needs. Transitional Care Manager: Kristy Copeland DCPIA - Discharge Planning Initial Assessment Updated by [email or web address]: Kristy Copeland on 10/23/19 2:42 pm * Is the patient Alert and Oriented? Yes * How many steps to enter\exit or inside your home? * PCP MORALES * Pharmacy [facility] [address] * Preadmission Environment Home Alone * ADLs Partial Dependent * Partial ADLs (Assistance needed) Transfers * Equipment Bedside Commode Cane Rolling Walker Shower Chair * Other Equipment TRANSFER SHOWER CHAIR * List name and contact numbers for known caregivers / representatives who currently or will assist patient after discharge: DIONNA SCHULTE ([facility]) [phone] * Verbal permission to speak to the caregivers and representatives has been obtained from the patient. Yes * Community resources currently utilized Advantage Program * Please name any agencies selected above. [facility] 15 HOURS PER WEEK * Additional services required to return to the preadmission environment? Yes * Can the patient safely return to the preadmission environment? No * Has this patient been hospitalized within the prior 30 days at any hospital? No Coverage Notice Reviewer: [email or web address] Kyrie Copeland Notice Issued Date-Time: 10/23/2019 13:40 Notice Type: IM Discharge Notice Notice Delivered To: Patient Relationship to Patient: Supervisor Graphite Name: Delivery Method: HAND - Hand Delivered Kenna Days: Prior Verbal Notification: Recipient Understood Notice: Yes Recipient Signature: Yes Med Rec Note Co-signed by Attending: Coverage Notice Comment: Reviewer: [email or web address] Kyrie Copeland Notice Issued Date-Time: 10/23/2019 13:40 Notice Type: Patient Choice Letter Notice Delivered To: Patient Relationship to Patient: Supervisor Graphite Name: Delivery Method: HAND - Hand Delivered Kenna Days: Prior Verbal Notification: Recipient Understood Notice: Yes Recipient Signature: Yes Med Rec Note Co-signed by Attending: Coverage Notice Comment: alisson with [facility] inpatient rehab Last DP export: 10/24/19 12:09 p Patient Name: ASHLEY PALUMBO Page [phone] at 1039 All edits/amendments must be made on the electronic document DICTATION DATE: 10/25/19 1038 CERTIFIED CONTROL SYSTEMS TECHNICIAN: VENTURA 10/25/[address] [facility]#: [id number] DC DATE:10/24/19 STATUS: DIS IN [facility] [address] [facility] [place] [address] END OF REPORT
--- NOTE | 2019-10-28 09:14 | OP ---
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 PROCEDURE: Revision total knee arthroplasty. SURGEON: Manjit Nayak MD ENTRY LEVEL ACCOUNT EXECUTIVE: IDRIS Cruz INTRAOPERATIVE COMPLICATIONS: None. SUMMARY OF PATHOLOGIC FINDINGS: The patient's femur was very easy to remove without any bone loss at all, did not appear to be adherent at the cement bone interface, and the tibia likewise was easily removed. The patella was left in situ as it was a year old and pristine. IMPLANTS USED: Aesculap Oxinium 7-layer coated stem used for metal allergies. Please see the operative notes for the record of the exact implants. These were stemmed up and stemmed down. Tibia was 2+18 x 32 stem, 14 with constraint. Femur was a size 4 with a 19 x 177 press-fit stem. OPERATIVE SUMMARY IN DETAIL: After obtaining the appropriate preoperative orthopedic surgery consent as well as anesthetic consultation, evaluation, and clearance, the patient was brought to the operating room and placed on the operating table in the supine position. After adequate general laryngeal mask airway was administered, a tourniquet was placed about the proximal aspect of the left lower extremity. The left lower extremity was then prepped and draped in a routine sterile fashion. The leg was elevated, exsanguinated, and the tourniquet was inflated to 350 mmHg. Routine time-out was taken and agreed upon by all given the patient's unique identifiers. The midline incision was used over the previous incision, taken down for a paramedian arthrotomy. Patella was subluxed. At this point, serial and sequential removal of both components were done as again stated above they were removed relatively easily without any bone loss on the femur and any bone loss on the tibia. Having removed all components, excess cement within the tibia was removed. Attention was first turned to the proximal tibia where serial and sequential reaming and broaching done for the appropriate size tibia and after sizing was undertaken, the trial was put into place and left into place with no offset and had a very nice fit and fill. Attention was then turned to the femur. Serial and sequential reaming was done for the appropriate size trial as noted above. There was no offset on the femur and no augmentations were required. Final trials were put into place, taken through range of motion, and found to be stable in all planes. At this point, the Aesculap prosthesis was reassembled on the back table, cemented into place. All the excess cement was removed. After the cement was allowed to harden, the knee was taken through a range of motion and found to be stable in all planes. The knee was then filled with a gram of vancomycin and a gram of tobramycin and the paramedian arthrotomy was closed by IDRIS Cruz, OPERATIVE REPORT [id number] ASHLEY PALUMBO with #2 Ethibond. This was followed by #1 Vicryl, 2-0 Vicryl and skin gordon also closed by IDRIS Cruz. Sterile dressing was applied. Tourniquet was deflated. The patient was awakened and taken to the recovery room in stable condition. All final needle and sponge counts were correct. NTS:[id number] Voice Confirmation ID: [id number] DOCUMENT ID: [id number] NAEL TREVINO, MANJIT FARAH at 0914 CC: [id number] DICTATION DATE: 10/24/19 1113 SURGICAL SCRUB TECHNOLOGIST: 10/24/19 2237 DIS IN 10/24/19 [id number] [place] [id number]
== END 2019-10-24 15:50 | DRG 468 ==
LOC: D.SDCHOLD 10-21 06:00 → D.M3 10-21 06:00 → D.SDCHOLD 10-21 07:45 → D.MS 10-21 11:38 → D.M3 10-22 11:21
PROVIDERS: ADMIT Family Medicine; ATTEND Orthopaedic Surgery
PROC: 0SR Lower Joints, Replacement (ICD-10-PCS; 2019-10-21)
PROC: 0SPU0JZ Removal of Synthetic Substitute from Left Knee Joint, Femoral Surface, Open Approach (ICD-10-PCS; principal; 2019-10-21 08:15)
DX: T84.84XA Pain due to internal orthopedic prosthetic devices, implants and grafts, initial encounter (principal); T78.49XA Other allergy, initial encounter; Y83.9 Surgical procedure, unspecified as the cause of abnormal reaction of the patient, or of later complication, without mention of misadventure at the time of the procedure; I10 Essential (primary) hypertension

== ENCOUNTER 2019-10-24 16:14 | Inpatient (IN) | payer MEDICARE ==
[~2019-10-24] VITALS: Ht 165.1 cm; Wt 97.5 kg
[~2019-10-24 16:14] MED LIST changes: +DILAUDID2 MG PO; +MERIBIN5 MG PO
[2019-10-24 18:18] VITALS: BP 119/71; BMI 35.8
--- NOTE | 2019-10-24 19:49 | NUR ---
REPORT RECEIVED AND ROUNDING COMPLETE, PATIENT LAYING IN BED IN HIGH FOWLERS POSITION. PATIENT USINF CELLPHONE "GETTING ALL DIUCKS IN A ROW". PATIENT STATES SHE DID NOT GET A NAP TONIGHT SO SHE IS OVERLY READY FOR BED. NO NEEDS VOICED, NO DISTRESS NOTED. CALL LIGHT WITHIN REACH AND BED IN LOWEST LOCKED POSITION.
--- NOTE | 2019-10-25 07:51 | NUR ---
SITTING UP IN BED EATING BREAKFAST, DENIES ANY NEEDS AT THIS TIME, C/L AND FLUIDS IN REACH.
[2019-10-25 07:54] VITALS: BP 133/71
[2019-10-25 07:59] LABS: BASOPHILS 0.6 % (0-2); EOSINOPHILS 7.5 % (0-7); HEMATOCRIT 29.6 % (36.0-48.0); HEMOGLOBIN 8.8 g/dL (12-16); IMMATURE GRANULOCYTES 0.2 % (0-5); LYMPHOCYTES 21.2 % (15-50); MCH 28.8 pg (26.0-34.0); MCHC 29.7 g/dL (31.0-37.0); MCV 96.7 fL (80.0-100.0); MEAN PLATELET VOLUME 9.7 fL (7.4-10.4); MONOCYTES 10.9 % (2-11); NEUTROPHILS 59.6 % (40-80); PLATELET COUNT 293 10x3/uL (130-400); RBC 3.06 10x6/uL (4.00-5.40); RDW 14.8 % (11.5-14.5); WBC 5.2 10x3/uL (4.8-10.8)
[2019-10-25 08:12] LABS: CALC OSMOLALITY 289 mosm/kg (275-300); CALCIUM 8.3 mg/dL (8.5-10.1); CARBON DIOXIDE 28.9 mmol/L (21.0-32.0); CHLORIDE - SERUM 111 mmol/L (98-107); CREATININE - SERUM 0.8 mg/dL (0.6-1.3); GLUCOSE 94 mg/dL (74-106); POTASSIUM - SERUM 4.2 mmol/L (3.5-5.1); SODIUM 145 mmol/L (136-145); UREA NITROGEN 16 mg/dL (7-18); eGFR NON AFRICAN AMERICAN 77 mL/min (90-120)
--- NOTE | 2019-10-25 11:08 | NUR ---
PATIENT ADMITTED TO [facility] FROM ACUTE FLOOR. HER PCP IS DR. MORALES.SHE IS A CLIENT OF [facility]. DME AT HOME IS A WALKER, SHOWER CHAIR, BEDSIDE COMMODE AND A CANE. DISCHARGE PLANS ARE FOR HER TO RETURN TO HER HOME. WILL CONTINUE TO FOLLOW WITH PATIENT.
--- NOTE | 2019-10-25 12:02 | NUR ---
SITTING UP IN BED WATCHING TV, DENIES ANY NEEDS AT THIS TIME, C/L AND FLUIDS IN REACH.
[2019-10-25 12:16] VITALS: Ht 165.1 cm; Wt 97.5 kg
--- NOTE | 2019-10-25 16:03 | NUR ---
SITTING UP IN BED WATCHING TV, DENIES ANY NEEDS AT THIS TIME, C/L AND FLUIDS IN REACH.
[2019-10-25 19:56] VITALS: BP 113/59
--- NOTE | 2019-10-25 19:59 | NUR ---
AWAKE AND ALERT. MEDICATED FOR PAIN. SEE MAY. BANDAGE TO LEFT KNEE DRY AND INTACT. RESPRIATIONS UNLABORED. NO ACUTE DISTRESS NOTED. CALL LIGHT IN REACH.
--- NOTE | 2019-10-26 02:02 | NUR ---
SLEEPING WITH RESPIRATIONS UNLABORED. NO DISTRESS NOTED.
--- NOTE | 2019-10-26 05:52 | NUR ---
RESTING IN BED WITH RESPIRATIONS UNLABORED. NO ACUTE CHANGES IN CONDITION THIS SHIFT.
--- NOTE | 2019-10-26 10:34 | NUR ---
PT RESTING IN BED WITH EYES OPEN CALL LIGHT IN REACH NO PROBLEMS WILL MONITER
[2019-10-26 14:35] VITALS: BP 137/76
--- NOTE | 2019-10-26 17:21 | NUR ---
PT RESTING IN BED WITH EYES OPEN CALL LIGHT IN REACH WILL MONITER
[2019-10-26 20:00] VITALS: BP 117/50
--- NOTE | 2019-10-27 01:59 | NUR ---
STILL HAVING PAIN IN KNEE. ON PHONE WITH FAMILY MEMBER C/O PAIN NOT BEING RELIEVED. I REVIEWED OPTIONS WITH HER. SHE VOICED UNDERSTANDING. ICE PACK PROVIDED FOR KNEE FOR NOW.
--- NOTE | 2019-10-27 05:01 | NUR ---
RESTING QUIETLY NOW. CALMER AFTER RECIEVING TYLENOL #3 AT 0300. WILL CONTINUE TO MONITOR.
--- NOTE | 2019-10-27 08:00 | NUR ---
PT RESTING IN BED WITH EYES OPEN CALL LIGHT IN REACH WILL MONITER
--- NOTE | 2019-10-27 18:05 | NUR ---
PT RESTING IN BED WITH EYES OPEN CALL LIGHT IN REACH WILL MONITER
[2019-10-27 20:00] VITALS: BP 124/76
--- NOTE | 2019-10-27 20:00 | NUR ---
NEW ORDERS FOR TYLENOL AND ZANAFLEX. SEE MAR. MEDICATED FOR BREAKTHOUGH PAIN. VISITING WITH DAUGHTER. RESPIRATIONS UNLABORED. CALL LIGHT IN REACH.
--- NOTE | 2019-10-28 03:24 | NUR ---
SLEEPING WITH RESPIRATIONS UNLABORED. NO DISTRESS NOTED.
[2019-10-28 07:07] LABS: BASOPHILS 0.3 % (0-2); EOSINOPHILS 7.1 % (0-7); HEMOGLOBIN 9.7 g/dL (12-16); IMMATURE GRANULOCYTES 0.7 % (0-5); LYMPHOCYTES 17.4 % (15-50); MCH 29.4 pg (26.0-34.0); MCHC 30.3 g/dL (31.0-37.0); MEAN PLATELET VOLUME 9.7 fL (7.4-10.4); MONOCYTES 9.6 % (2-11); NEUTROPHILS 64.9 % (40-80); RDW 14.7 % (11.5-14.5)
[2019-10-28 07:14] LABS: PLATELET COUNT 352 10x3/uL (130-400)
[2019-10-28 07:24] LABS: CALC OSMOLALITY 290 mosm/kg (275-300); CALCIUM 8.5 mg/dL (8.5-10.1); CARBON DIOXIDE 26.3 mmol/L (21.0-32.0); CHLORIDE - SERUM 107 mmol/L (98-107); CREATININE - SERUM 0.8 mg/dL (0.6-1.3); GLUCOSE 95 mg/dL (74-106); POTASSIUM - SERUM 4.5 mmol/L (3.5-5.1); SODIUM 144 mmol/L (136-145); UREA NITROGEN 23 mg/dL (7-18); eGFR NON AFRICAN AMERICAN 77 mL/min (90-120)
--- NOTE | 2019-10-28 08:00 | NUR ---
SITTING UP IN BED EATING BREAKFAST, DENIES ANY NEEDS AT THIS TIME, C/L AND FLUIDS IN REACH.
[2019-10-28 08:37] VITALS: BP 126/82
--- NOTE | 2019-10-28 10:19 | RHP ---
PATIENT: ASHLEY PALUMBO MEDICAL RECORD: [id number] ACCOUNT: [id number] [facility] [birth year] ADMISSION DATE: 10/24/19 REHABILITATION HISTORY AND PHYSICAL EXAMINATION POST ADMISSION PHYSICIAN EXAMINATION ADMITTING DIAGNOSIS: Revision of a left total knee secondary to metal allergy. HISTORY OF PRESENT ILLNESS: The patient is a 64-year-old female patient who was admitted to the acute hospital after a revision of her left total knee. She got tested for metal allergy and was positive for NICKEL and COBALT. She had an appointment with orthopedic surgery for revision because of increasing pain in her knee. She underwent surgery on 10/20. She has had some postop complications including blood loss anemia, acute pain. She has been requiring some supplemental O2. She has been participating in physical and occupational therapy during her stay. She needs to be monitored closely for any signs of bleeding, monitoring for any signs of problems with her intake and output. She has got proximal muscle weakness, balance deficits, decreased activity tolerance, impaired mobility, decreased strength, gait disturbance, limited safety awareness. She has medical complex and risk for falls. She has got low endurance. She fatigues easily. She lives at home alone, was independent with her ADLs and mobility prior to this. Currently, she is set up for max assist for her ADLs and mod assist with mobility with use of rolling walker. She plans to return home at her prior level of functioning or better. COMORBIDITIES: Include weakness, obesity, osteoarthritis of her knee, acute pain, acute blood loss anemia. PAST MEDICAL HISTORY: Significant for dentures, allergies, thyroid problems, hypertension, arthritis, osteoporosis, depression, circulatory problems. PAST SURGICAL HISTORY: Includes gallbladder, hernia, cataracts, hysterectomy, gastric bypass, abdominoplasty and also a left total knee replacement. ALLERGIES: NICKEL, COBALT, PENICILLIN, MACRODANTIN, SULFA, LATEX, HYDROCODONE, IBUPROFEN AND TRAMADOL. CURRENT MEDICATIONS: Include Zoloft 100 mg daily, multivitamin daily, lisinopril 20 mg daily, vitamin D 5000 units daily, Synthroid 75 mcg daily, Colace 100 mg b.i.d., Eliquis 2.5 mg b.i.d., Dilaudid 4 mg every 4 hours p.r.n. and Tylenol #3 as needed for pain. HABITS: No alcohol or tobacco use. FAMILY HISTORY: Noncontributory. SOCIAL HISTORY: The patient hopes to return back home and get back to her prior level of functioning. REVIEW OF SYSTEMS: GENERAL: Does complain of weakness and fatigue. HEENT: Denies cold, cough, or congestion. CARDIOVASCULAR: Denies any chest pain. PHYSICAL EXAMINATION: HISTORY AND PHYSICAL [id number] [place]LEY VITAL SIGNS: Stable, afebrile. GENERAL: A morbidly obese female, in no distress upon exam. HEENT: Normocephalic and atraumatic. Mucosa moist. NECK: Supple. No lymphadenopathy. LUNGS: Clear in upper read. No wheezing or rales. HEART: Regular rate and rhythm. No murmurs, rubs or gallops. ABDOMEN: Soft, benign and nondistended. Positive bowel sounds times 4. EXTREMITIES: No clubbing, cyanosis or edema. She does have normal postoperative swelling to this area. NEUROLOGIC: She does have proximal muscle weakness, especially in her quadriceps of her lower legs. ASSESSMENT: This is a 64-year-old female patient admitted to rehab with a working diagnosis of status post total knee revision secondary to COBALT and NICKEL allergy. The patient has potential to make improvement. We instituted the following multidisciplinary therapies include, but not limited to physical, occupational, respiratory, speech, nutritional services, prosthetics and orthotics. Given her complex medical condition and risks for more complications, rehabilitation services cannot be provided at a low level of care such as assisted facility. PLAN: 1. Admit to [facility] for inpatient therapy to include the following disciplines: A. Physical therapy to improve gait, all transfer skills and bed mobility to a modified independent level. B. Occupational therapy to improve activities of daily living. C. Case management to help with discharge planning and placement options. D. Nutrition to assist with nutritional needs. E. Rehabilitation nursing to assist in monitoring the patient's underlying medical conditions and to assist with any type of bowel or bladder management. 2. The patient's current medication and medical care will be continued. 3. The patient will be placed on standard fall precautions. 4. The patient's estimated length of stay is approximately 7-10 days. 5. We will discuss this patient during care team staff meeting this week. We will followup. Her labs are pending at this time and I will see again in the a.m. TRANSINT:[id number] Voice Confirmation ID: [id number] DOCUMENT ID: [id number] RAVEN notes whether there has been none or any medical/functional change since admission: - No change since prescreen. RAVEN attests patient continues to be appropriate for IRF: - Continues to be appropriate. HISTORY AND PHYSICAL [id number] ASHLEY PALUMBO,FITO CRUZ MD at 1019 CC: [id number] DICTATION DATE: 10/25/19 0733 MELTER LOADER: 10/25/19 1239 ADM IN [facility] [address] [id number]
[2019-10-28] MEDS ORDERED: DILAUDID2 MG PO (10:26)
--- NOTE | 2019-10-28 12:01 | NUR ---
RESTING IN BED WATCHING TV, DENIES ANY NEEDS AT THIS TIME, C/L AND FLUIDS IN REACH.
--- NOTE | 2019-10-28 12:54 | NUR ---
I have reviewed this patient and I concur with the Shift Assessment completed by the Licensed Practical Nurse today this shift.
--- NOTE | 2019-10-28 16:13 | NUR ---
RESTING IN BED WATCHING TV, DENIES ANY NEEDS AT THIS TIME, C/L AND FLUIDS IN REACH.
--- NOTE | 2019-10-28 19:30 | NUR ---
RECEIVED PT SITTING UP IN BED TALKING ON PHONE. DENIES ANY NEEDS OR PAIN. NO SIGNS OF ACUTE DISTRESS NOTED. LEFT KNEE INCISION WITH REDNESS AND WARMTH. SHIFT ASSESSMENT COMPLETE. CALL LIGHT WITHIN REACH. FALL PRECAUTIONS IN PLACE. CPOC
[2019-10-28 20:04] VITALS: BP 121/58
--- NOTE | 2019-10-29 00:10 | NUR ---
PT SITTING UP IN BED C/O 09/19 LEFT KNEE PAIN. ADMININSTERED 4MG DILAUDID PER ORDERS. DENIES ANY OTHER NEEDS OR PAIN. NO SIGNS OF ACUTE DISTRESS NOTED. CALL LIGHT WITHIN REACH. FALL PRECAUTIONS IN PLACE. CPOC
--- NOTE | 2019-10-29 02:10 | NUR ---
PT LYING IN BED SUPINE EYES CLOSED RESTING. RR EVEN AND UNLABORED. CALL LIGTH WITHIN REACH. CPOC
--- NOTE | 2019-10-29 05:26 | NUR ---
PT LYING IN BED EYES CLOSED RESTING. NO ACUTE CHANGES IN CONDITION NOTED THIS SHIFT. CALL LIGHT WITHIN REACH. FALL PRECAUTIONS IN PLACE. CPOC
[2019-10-29 08:00] VITALS: BP 123/63
--- NOTE | 2019-10-29 08:13 | NUR ---
SITTING UP IN BED EATING BREAKFAST, DENIES ANY NEEDS AT THIS TIME, C/L AND FLUIDS IN REACH.
--- NOTE | 2019-10-29 11:04 | NUR ---
PATIENT DISCHARGING HOME TODAY WITH FAMILY. [facility] WILL RESUME THERAPY AT HOME. NO NEW DME NEEDED AT THIS TIME. DR. MORALES/AVELINO SIN 11/04/19 @ 10:45, DR. NAYAK 11/05/19 @ 2:00, PEGGY SIGNED, IMM SERVED AND EXPLAINED, ONE GIVEN TO PATIENT AND ONE FILED IN CHART. NO COMPARE DATA REVIEWED PATIENT WISHES TO REMAIN WITH [facility]. DISCHARGE INSTRUCTIONS FAXED TO PCP, HOME HEALTH AND REVIEWED WITH PATIENT PER DORISDENTON NURSE.
--- NOTE | 2019-10-29 12:25 | NUR ---
SITTING UP IN BED EATING LUNCH, DENIES ANY NEEDS AT THIS TIME, C/L AND FLUIDS IN REACH.
--- NOTE | 2019-10-29 12:55 | NUR ---
PATIENT D/C TO HOME WITH FAMILY. PT. HAS ALL BELONGINGS WITH THEM. REVIEWED AL MEDICATIONS WITH PT. REVIEWED ALL FOLLOW UP APPOINTMENTS AND HOME HEALTH. MEDICATIONS CALLED INTO PHARMACY AND PERSCRIPTIONS GIVEN TO PT.
== END 2019-10-29 12:30 | disposition home health service (06) | DRG 560 ==
LOC: D.REHAB 16:14
PROVIDERS: ADMIT Emergency Medicine; ATTEND Emergency Medicine
DX: Z47.1 Aftercare following joint replacement surgery (principal); D62 Acute posthemorrhagic anemia; Z96.652 Presence of left artificial knee joint; E66.9 Obesity, unspecified; I10 Essential (primary) hypertension; M62.81 Muscle weakness (generalized); R26.9 Unspecified abnormalities of gait and mobility; R53.83 Other fatigue; Z98.84 Bariatric surgery status; M17.12 Unilateral primary osteoarthritis, left knee; R52 Pain, unspecified

== ENCOUNTER → 2020-08-11 11:14 | Outpatient (CLI) | payer MEDICARE ==
[2019-10-25 12:16] VITALS: BMI 35.7
== END | disposition home or self-care (01) ==
LOC: D.NM 11:00
PROVIDERS: ATTEND Orthopaedic Surgery
DX: Z96.652 Presence of left artificial knee joint (principal)